=== PATIENT | male | born 1960 | race Two or more races ===

== ENCOUNTER 2022-07-17 11:09 | Emergency (ER) | payer OTHER ==
[2022-07-17] MEDS ORDERED: LEVALBUTEROL 1.25 MG/3 ML NEB ONE (12:30)
--- NOTE | 2022-07-17 12:31 | RAD REPORT ---
EXAM DESCRIPTION: RAD - Chest Single View - 07/17/2022 12:25 pm CLINICAL HISTORY: cough, fever Chest pain. COMPARISON: No comparisons FINDINGS: Portable technique limits examination quality. The lungs are grossly clear. Mildly tortuous thoracic aorta. The heart is normal in size. No displace d fractures. IMPRESSION: No acute intrathoracic process suspected.
--- NOTE | 2022-07-17 13:25 | ER ---
Nurse's Notes [facility] Name: Amrit Araujo Age: 62 yrs Sex: Male : 1960 Arrival Date: 07/17/2022 Time: 11:13 Bed 9 Private MD: Diagnosis: Acute pharyngitis, unspecified Presentation: 07/17 11:16 Chief complaint: Patient states: eyes watering and cough that began approximately 10 aa5 days ago. Denies SOB. Also reports sore throat. Coronavirus screen: cough unrelated to allergies, sore throat. Ebola Screen: Patient denies travel to an Ebola-affected area in the 21 days before illness onset. Initial Sepsis Screen: Does the patient meet any 2 criteria? No. Patient's initial sepsis screen is negative. Does the patient have a suspected source of infection? No. Patient's initial sepsis screen is negative. Risk Assessment: Do you want to hurt yourself or someone else? Patient reports no desire to harm self or others. Onset of symptoms was June 2022. 11:16 Method Of Arrival: Ambulatory aa5 11:16 Acuity: LYNDA 4 aa5 Historical: - Allergies: 11:17 No Known Allergies; aa5 - PMHx: 11:17 Diabetes mellitus; aa5 - Immunization history:: Adult Immunizations unknown. - Social history:: Smoking status: Patient denies any tobacco usage or history of. Screenin:20 Abuse screen: Denies threats or abuse. Nutritional screening: No deficits noted. bm7 Tuberculosis screening: No symptoms or risk factors identified. Fall Risk None identified. Assessment: 13:20 Reassessment: No changes from previously documented assessment. Patient and/or family bm7 updated on plan of care and expected duration. Pain level reassessed. Patient is alert, oriented x 3, equal unlabored respirations, skin warm/dry/pink. 13:20 Reassessment: Patient states feeling better. bm7 Vital Signs: 11:18 BP 152 / 88; Pulse 84; Resp 18 S; Temp 97.4(TE); Pulse Ox 100% on R/A; Weight 82.96 kg aa5 (M); 13:20 BP 128 / 77; Pulse 80; Resp 16; Temp 98.1(TE); Pulse Ox 100% on R/A; Pain 0/10; bm7 ED Course: 11:13 Patient arrived in ED. rg4 11:14 Lucas Alcazar PA is PHCP. [facility] 11:14 Jassi Camp MD is Attending Physician. [facility] 11:16 Arm band placed on. aa5 11:17 Triage completed. aa5 12:19 Aileen Rosenberg, RN is Primary Nurse. bm7 12:27 Chest Single View XRAY In Process Unspecified. EDMS 13:20 No apparent distress. Resting quietly. Awaiting lab results. bm7 13:20 Patient has correct armband on for positive identification. Placed in gown. Bed in low bm7 position. Call light in reach. Side rails up X 1. Client placed on continuous cardiac and pulse oximetry monitoring. NIBP monitoring applied. 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 Warm blanket given. 13:20 Oxygen administered via a nebulizer mask. Response to oxygen therapy: symptoms improved.bm7 13:39 No provider procedures requiring assistance completed. Patient did not have IV access bm7 during this emergency room visit. Administered Medications: 12:30 Drug: Xopenex (levalbuterol) (3) 1.25 mg Route: Inhalation; bm7 Medication: 13:20 VIS not applicable for this client. bm7 Outcome: 13:24 Discharge ordered by . [facility] 13:39 Discharged to home ambulatory. bm7 13:39 Condition: improved 13:39 Discharge instructions given to patient, Instructed on discharge instructions, follow up and referral plans. medication usage, Demonstrated understanding of instructions, follow-up care, medications, Prescriptions given X 2. 13:39 Patient left the ED. bm7 Signatures: Dispatcher [employer] EDMS Lucas Alcazar PA PA jmm Calderon, Audri, RN RN Aishwarya Mittal rg4 Aileen Rosenberg, RN RN 7
--- NOTE | 2022-07-17 13:25 | EDPHYS ---
Physician Documentation [facility] Name: Amrit Araujo Age: 62 yrs Sex: Male : 1960 Arrival Date: 07/17/2022 Time: 11:13 Bed 9 Private MD: ED Physician Jassi Camp HPI: 07/17 11:25 This 62 yrs old Male presents to ER via Ambulatory with complaints of Eye jmm Problem, Cough. 11:25 Onset: The symptoms/episode began/occurred gradually. jmm 11:25 Modifying factors: The symptoms are alleviated by nothing. the symptoms are aggravated jmm by nothing. Is a 62-year-old male with history of diabetes mellitus the presents emerged part with complaints of cough, shortness of breath, chills, sore throat. Denies infectious exposure. Denies vomiting or diarrhea.. Historical: - Allergies: 11:17 No Known Allergies; aa5 - PMHx: 11:17 Diabetes mellitus; aa5 - Immunization history:: Adult Immunizations unknown. - Social history:: Smoking status: Patient denies any tobacco usage or history of. ROS: 11:25 Abdomen/GI: Negative for abdominal pain, nausea, vomiting, diarrhea, and constipation, jmm Back: Negative for injury and pain. 11:25 Constitutional: Positive for body aches, chills. 11:25 ENT: Positive for sore throat. 11:25 Respiratory: Positive for cough, shortness of breath. 11:25 All other systems are negative. Exam: 11:25 Constitutional: This is a well developed, well nourished patient who is awake, alert, jmm and in no acute distress. Head/Face: atraumatic. Eyes: EOMI, no conjunctival erythema appreciated ENT: Moist Mucus Membranes Cardiovascular: Regular rate and rhythm. No edema appreciated 11:25 Neck: Trachea midline, Supple Chest/axilla: Normal chest wall appearance and motion. Respiratory: Normal respirations, no respiratory distress appreciated Abdomen/GI: Non distended Back: Normal ROM Skin: General appearance color normal MS/ Extremity: Moves all extremities, no obvious deformities appreciated, no edema noted to the lower extremities Neuro: Awake and alert Psych: Behavior is normal, Mood is normal, Patient is cooperative and pleasant 11:25 ENT: Posterior pharynx: erythema, that is mild. Vital Signs: 11:18 BP 152 / 88; Pulse 84; Resp 18 S; Temp 97.4(TE); Pulse Ox 100% on R/A; Weight 82.96 kg aa5 (M); 13:20 BP 128 / 77; Pulse 80; Resp 16; Temp 98.1(TE); Pulse Ox 100% on R/A; Pain 0/10; bm7 MDM: 11:25 [facility]. [facility] 13:24 Data reviewed: vital signs, nurses notes. Counseling: I had a detailed discussion with [facility] the patient and/or guardian regarding: the historical points, exam findings, and any diagnostic results supporting the discharge/admit diagnosis, lab results, radiology results, the need for outpatient follow up, to return to the emergency department if symptoms worsen or persist or if there are any questions or concerns that arise at home. ED course: Patient is alert nontoxic in appearance NAD. No signs respiratory distress. Patient vies follow-up PCP and otherwise encouraged strict return precautions. Patient understood and agrees plan of care.. 07/17 11:26 Order name: Influenza Screen (a \\T\\ B); Complete Time: 13:07 [facility] 07/17 11:26 Order name: Strep; Complete Time: 12:11 [facility] 07/17 11:26 Order name: SARS-COV-2 RT PCR (Document "Date of Onset" if Symptomatic); Complete Time: [facility] 12:40 07/17 12:01 Order name: Glucose, Ancillary Testing; Complete Time: 12:10 [facility] 07/17 12:07 Order name: Glucose, Ancillary Testing [facility] 07/17 12:13 Order name: Throat Culture [facility] 07/17 11:27 Order name: Finger Stick; Complete Time: 12:00 [facility] 07/17 11:27 Order name: Chest Single View XRAY; Complete Time: 12:34 [facility] Administered Medications: 12:30 Drug: Xopenex (levalbuterol) (3) 1.25 mg Route: Inhalation; bm7 Disposition: 14:12 Co-signature as Attending Physician, Jassi Camp MD. rn Disposition Summary: 07/17/22 13:24 Discharge Ordered [facility]: Home [facility] Condition: Stable [facility] Diagnosis - Acute pharyngitis, unspecified [facility] Followup[facility] - With: Private Physician - When: 2 - 3 days - Reason: Recheck today's complaints, Continuance of care, Re-evaluation by your physician Discharge Instructions: - Discharge Summary Sheet [facility] - Pharyngitis [facility] Forms: - Medication Reconciliation Form [facility] - Thank You Letter [facility] - Antibiotic Education [facility] - Prescription Opioid Use [facility] Prescriptions: - cefdinir 300 mg Oral capsule - take 1 capsule by ORAL route every 12 hours for 10 days; 20 capsule; Refills: jmm 0, Product Selection Permitted - albuterol sulfate 90 mcg/actuation Inhalation HFA aerosol inhaler - inhale 2 puff by INHALATION route every 4-6 hours; 1 Pump; Refills: 0, Product jm Selection Permitted Signatures: Dispatcher [employer] Lucas Porras PA PA jmm Nieto, Roman, MD MD rn Calderon, Audri RN RN aa5 Aileen Rosenberg, RN RN bm7
[2022-07-18 21:51] VITALS: O2SAT 100
[2022-07-18 21:55] VITALS: BP 128/77; TEMP 98.1
== END 2022-07-17 13:39 | disposition home or self-care (01) ==
LOC: ER 11:09
DX: J02.9 Acute pharyngitis, unspecified (principal); R05.9 Cough, unspecified; Z20.822 Contact with and (suspected) exposure to COVID-19; E11.9 Type 2 diabetes mellitus without complications
CPT/HCPCS: 87070; 82947; 87081; 87804 ×2; 71045; 99285; U0003; J7614